=== PATIENT | female | born 1945 | race Caucasian/White ===

== ENCOUNTER 2019-03-14 10:33 | Day surgery (SDC) | payer MEDICARE, OTHER ==
[2019-03-11 11:00] VITALS: BMI 27.6
[~2019-03-14 10:33] MED LIST: DEXAMETHASONE SOD PHOSPHATE 10 MG/ML 1 ML VIAL IV ONE; HYDROmorphone 0.5 MG/0.5 ML SYRINGE IVP PRN; LACTATED RINGERS 1,000 ML IV SCH; MORPHINE SULFATE 2 MG/ML SYRINGE IV PRN; ONDANSETRON 4 MG/2 ML VIAL IVP ONE; ONDANSETRON 4 MG/2 ML VIAL IVP PRN; Pre Op ABX Message 1 EACH MISC MISCELLANE ONE
[2019-03-14] MEDS ORDERED: LIDOCAINE 1% 20 ML VIAL (10MG/ML) FOR IV START INTRADERMA ONE (11:10)
[2019-03-14] MEDS ORDERED: fentaNYL (PF) 50 MCG/ML 2 ML AMP ONE (13:30)
[2019-03-14] MEDS ORDERED: PROPOFOL 10 MG/ML 20 ML VIAL IV ONE (13:30)
[2019-03-14] MEDS ORDERED: LABETALOL 5 MG/ML VIAL MDV ONE (13:30)
[2019-03-14] MEDS ORDERED: LIDOCAINE 1% INJ 10MG/ML (20 ML MDV) ONE (13:30)
[2019-03-14] MEDS ORDERED: LIDOCAINE 1%-EPI 1:100,000 20 ML VIAL SQ ONE ×2 (13:41→13:57)
[2019-03-14] MEDS ORDERED: BUPIVACAINE (PF) 0.5% 30 ML VIAL SQ ONE (13:57)
[2019-03-14] MEDS ORDERED: LABETALOL SYRINGE 5 MG/ML IVP ONE (14:40)
[2019-03-14 14:51] VITALS: TEMP 97.8
[2019-03-14 14:53] VITALS: RESP 18
[2019-03-14] MEDS ORDERED: LACTATED RINGERS 1,000 ML IV ONE (15:07)
[2019-03-14 15:46] VITALS: BP 170/94
[2019-03-14 15:51] VITALS: PULSE 95
--- NOTE | 2019-03-14 18:10 | P.OP ---
Date of Procedure: 03/14/19 Preoperative Diagnosis: 1. Left carpal tunnel syndrome 2. Left wrist volar ganglion cyst Postoperative Diagnosis: 1. Left carpal tunnel syndrome 2. 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 Treatment options (and associated risks and benefits) were discussed in the office. The patient elected to proceed with surgical release and possible cyst excision. In preop, the patient denied any additional questions or concerns. Consent forms were signed. The operative site was confirmed and marked. Description of Procedure: The patient was positioned supine with the operative limb on an arm board. A tourniquet was placed on the operative arm. Anesthesia was administered uneventfully. A time-out was performed, confirming patient identifiers, the operative side, site and the procedure to be performed: all team members expressed agreement. Using aseptic technique, local anesthetic was injected into the subcutaneous tissues around the planned incision. The left upper extremity was then prepped and draped in standard, sterile fashion. The limb was exsanguinated with an Esmarch and the tourniquet was inflated. Loupe magnification was used throughout the case for optimum visualization. A transverse incision was marked just proximal to the wrist flexion crease, in line with the radial border of the ring finger. The skin was sharply incised and the subcutaneous tissues were bluntly spread. The volar carpal fascia was identified and sharply incised. The mass was palpable within the wound but not visually identified. A synovial elevator was used to release adhesions on the underside of the transverse carpal ligament. A dilator was inserted to sound and enlarge the carpal tunnel. The hamate hook was palpable ulnarly. The side-specific guide and camera were inserted. The transverse carpal ligament was clearly visualized above. The distal edge of the ligament was identified and palpated with a probe. A rasp was used to clear the remaining synovial adhesions. The endoscopic blade was inserted and the distal half of the ligament was sharply incised. Residual distal transverse fibers were released and then the proximal portion of the ligament was divided. Wide release of ligament was visually confirmed. The camera was removed. The volar carpal fascia proximal and distal to the incision was released with scissors under direct visualization. A localized soft tissue mass was still palpable within the wound at the level of the incision. The median nerve was gently mobilized in an attempt to identify the suspected ganglion cyst. No discrete soft tissue mass was visually identified. The nerve itself was gently palpated and there was a focal thickening at this level which had the consistency of an intraneural ganglion. There was no focal visible enlargement to the nerve or signs of neuroma. The relative size of the mass was fairly small. I felt that this was not likely contributing a significant amount to her symptoms and attempting resection would risk creating scar tissue and neuroma and so it was left undisturbed. The tourniquet was released and good hemostasis confirmed. The wound was thoroughly irrigated with normal saline. The incision was closed with interrupted Nylon sutures. Additional local anesthetic was injected for postoperative pain control. A soft, sterile dressing was applied. All sponge, needle and instrument counts were correct at the end of the case. The patient tolerated the procedure well and was transferred to recovery in stable condition.
== END 2019-03-14 16:10 | disposition home or self-care (01) ==
LOC: OR 10:33
PROVIDERS: ATTEND Orthopaedic Surgery
DX: G56.02 Carpal tunnel syndrome, left upper limb (principal); I10 Essential (primary) hypertension; E78.5 Hyperlipidemia, unspecified; E03.9 Hypothyroidism, unspecified; M67.432 Ganglion, left wrist; S52.61 Fracture of ulna styloid process; S52.592P Other fractures of lower end of left radius, subsequent encounter for closed fracture with malunion; G89.29 Other chronic pain; J44.9 Chronic obstructive pulmonary disease, unspecified; Z87.891 Personal history of nicotine dependence; Z79.890 Hormone replacement therapy; Z79.899 Other long term (current) drug therapy
CPT/HCPCS: 29848; J1100; J2405; J2001; J3010; J2704